=== PATIENT | male | born 1985 | race Caucasian/White ===

== ENCOUNTER 2016-10-22 11:59 | Inpatient (IN) | payer OTHER ==
[~2016-10-22] VITALS: Ht 172.7 cm; Wt 76.2 kg
--- NOTE | 2016-10-22 12:10 | NUR ---
SECURITY AT BEDSIDE FOR WANDING AND VALUABLES SECURING. PT UNABLE TO PROVIDE URINE SAMPLE AT THIS TIME. PT PROVIDED WITH WATER.
--- NOTE | 2016-10-22 12:30 | NUR ---
OBI GRANT AT BEDSIDE FOR EVAL. PT DENIES MAKING HI COMMENTS TO HIS MOTHER. PT DENIES SI OR DRUG/ETOH USE/ PER EMS, PT'S PSYCHIATRIST IS DR LOPEZ AND THAT PT HAS BEEN HOSPITALIZED AT [facility] IN THE PAST FOR PSYCH ISSUES. PT DENIES MEDS, ALLERGIES OR MEDICAL HISTORY. PT IS REQUESTING SALES ORDER COORDINATOR. OBI GRANT AND I EXPLAINED TO PT THAT HIS COOPERATION WOULD MAKE THE EVAL PROCESS GO SMOOTHER. PER EMS, PT'S MOTHER ON WAY TO HOSPITAL.
--- NOTE | 2016-10-22 12:42 | ED PSYCHIATRIC COMPLAINT ---
History of Present Illness General Chief Complaint: Psychiatric Related Complaint Stated Complaint: BIBA FOR +HI Source: patient, police Exam Limitations: pt uncooperative Allergies Coded Allergies: No Known Allergies (10/22/16) Reconcile Medications No Known Home Medications Triage Note: PT BIBA ON PEC FROM HOME FOR HI COMMENTS MADE TO MOTHER. PT REPORTS HE WAS WOKEN UP FROM BED AND BROUGHT TO ER. Triage Nurses Notes Reviewed? yes HPI: 31-year-old male here on a PEER with the Police Department, from home, the concerns are that patient stated that he would, as per the police statement," resort to capital punishment to protect his home from his mother." He, according to his mother, according to the police report, was irate last evening and began screaming and threatening that he was going to slit her throat. Apparently he is not taking his psychiatric medication. Patient denies any of this, states that he was sleeping his room this morning when the police came to his room and brought him here for evaluation. He denies having a with his mother, he denies SI or HI, he denies any suicidal thoughts or homicidal thoughts, he denies any psychiatric history or mental health problems in the past or any psychiatric or mental health admissions. He denies any alcohol or drug use. He is not entirely cooperative, and not forthcoming with answers and is refusing to provide urine or blood testing or participating in a breathalyzer screen. (DENNIS BRAGG) Vital Signs & Intake/Output Vital Signs & Intake/Output Vital Signs Date Time Temp Pulse Resp B/P Pulse O2 O2 Flow FiO2 Ox Delivery Rate 10/24 0755 96.6 74 146/85 10/23 2023 97.8 68 136/80 10/23 1636 98.0 85 18 135/84 98 Room Air 10/23 1215 98.2 86 18 141/84 98 Room Air ED Intake and Output 10/24 0000 10/23 1200 Intake Total Output Total Balance Patient 168 lb Weight Past History Travel History Traveled to [place] past 21 day No Medical History Any Pertinent Medical History? none Surgical History Surgical History: none Psychosocial History Tobacco Use: Never used ETOH Use: denies use Illicit Drug Use: denies illicit drug use Family History Hx Contributory? No (unknown) (DENNIS BRAGG) Review of Systems Review of Systems Constitutional: Reports: see HPI. EENTM: Reports: no symptoms. Respiratory: Reports: no symptoms. Cardiovascular: Reports: no symptoms. GI: Reports: no symptoms. Genitourinary: Reports: no symptoms. Musculoskeletal: Reports: no symptoms. Skin: Reports: no symptoms. Neurological/Psychological: Reports: no symptoms. Hematologic/Endocrine: Reports: no symptoms. Immunologic/Allergic: Reports: no symptoms. All Other Systems: Reviewed and Negative (DENNIS BRAGG) Physical Exam Physical Exam General Appearance: well developed/nourished, anxious Head: atraumatic Eyes: Bilateral: PERRL, EOMI. Ears, Nose, Throat: normal pharynx, normal ENT inspection, hearing grossly normal Neck: normal inspection, supple Respiratory: normal breath sounds Cardiovascular: regular rate/rhythm Gastrointestinal: soft, non-tender Extremities: normal range of motion Neurological/Psychiatric: no motor/sensory deficits, awake, agitated, alert, anxious Appearance/Memory/Insight: appropriate appearance, appropriate insight, denies illness Behavoir/Eye Contact/Speech: avoids eye contact, cooperative Thoughts/Hallucinations: normal thought pattern, no apparent hallucination Skin: intact, normal color, warm/dry (DENNIS BRAGG) SAD PERSONS Done? patient not suicidal (BEATRIZ REECE,GENEVIEVE) Progress Hand-Off Endorsed To: ARINA ALMONTE MD Endorsed Time: 2235 Pending: other (psychiatric hold for [facility]) (DENNIS BRAGG) Plan of Care: Orders Procedure Date/time Status Change service to 10/24 UNK Active Regular Diet 10/23 D Active Vital Signs 10/23 1706 Active Inpt Psych Teach/Educate 10/23 1706 Active Nutritional Intake, Monitor 10/23 1706 Active Inpt Psych Auricular Acupunctu 10/23 1706 Active Patient Data - inpatient psych 10/23 1203 Active Admit to inpatient psych 10/23 1203 Active Vital Signs 10/23 UNK Active Nursing Misc 10/23 UNK Active Alternative Nursing Therapy 10/23 UNK Active Activity/Ambulation 10/23 UNK Active EKG 10/23 UNK Active Intake & Output 10/22 1219 Complete Current Medications Sig/Bibiana Start time Last Medication Dose Stop Time Status Admin Risperidone 1 MG AT BEDTIME 10/23 2200 AC (Risperidone) Acetaminophen 650 MG Q4P PRN 10/23 2044 AC (Tylenol) Al Hydroxide/Mg 30 ML Q4-PRN PRN 10/23 2045 AC Hydroxide (Maalox Plus) Magnesium Hydroxide 30 ML Q6-PRN PRN 10/23 2045 AC (Milk Of Magnesia) Haloperidol 5 MG Q6-PRN PRN 10/23 1230 AC (Haldol) Lorazepam 1 MG Q6-PRN PRN 10/23 1230 AC (Ativan) Patient was initially refusing to participate in providing a urine sample and drug screen for a routine testing for crisis evaluation. After several discussions with myself and nursing staff and the crisis Department, he agreed to provide us with urine and blood specimens so we may proceed with further evaluation. There is no evidence of toxic ingestion and he is cleared from medical standpoint to be evaluated by our staff nurse. As per staff nurse, patient is a threat to harm his mother and he will require a PEC. The plan is to monitor him overnight and search for a more suitable psychiatric facility tomorrow. Patient signed out to Dr. Almonte at change of shift (DENNIS BRAGG) Comments: 10/22/2016 8:38:14 PM per crisis, the patient is a legitimate risk of harm to others and a bed search is in progress. 10/22/2016 10:50:00 PM patient signed out to me by OBI at shift exchange consultant. 10/23/2016 7:22:12 AM patient signed out to Dr. Fung at shift exchange consultant. (ALPESH REECE,ARINA Jolly) Differential Diagnosis: drug intoxication, drug overdose, drug withdrawal, electrolyte abnormality, hypoglycemia (BEATRIZ REECE,GENEVIEVE) Departure Departure Condition: Stable Referrals: UNKNOWN (PCP/Family) Departure Forms: Customer Survey General Discharge Information Prescriptions: Current Visit Scripts No Known Home Medications (DENNIS BRAGG) Departure Time of Disposition: 1209 Disposition: STILL A PATIENT Clinical Impression Primary Impression: Antisocial personality disorder in adult Secondary Impressions: Delusional disorder Psych Admission Note Psychiatric Admission: I have seen and evaluated FRANCES WORTHINGTON. I have also reviewed all the pertinent lab results and diagnostic results. FRANCES WORTHINGTON will be admitted to our inpatient Psychiatric unit for treatment and care. PA/POULTRY CULLER Co-Sign Statement Statement: ED Attending supervision documentation- x I saw and evaluated the patient. I have also reviewed all the pertinent lab results and diagnostic results. I agree with the findings and the plan of care as documented in the PA's/POULTRY CULLER's documentation. [] I have reviewed the ED Record and agree with the PA's/POULTRY CULLER's documentation. [] Additions or exceptions (if any) to the PAs/POULTRY CULLER's note and plan are summarized below: [] (BEATRIZ REECE,GENEVIEVE)
--- NOTE | 2016-10-22 12:46 | NUR ---
PT DENIES HAVING ANY OUTPATIENT TREATERS. PER EMS, PT'S MOM CALLED PT'S PSYCHIATRIST, DR LOPEZ TODAY WHO RECOMMENDED PT BE TRANSPORTED TO [facility].
--- NOTE | 2016-10-22 15:23 | ED PSY CRISIS COLLATERAL NOTE ---
Collateral Note Collateral Note Family/Inform/Faye Contacts: Crisis spoke with Pt's mother Kasey Mccoy . Pt lives with his Mom and mom is elderly and is dealing with her own medical issues. Pt is often verbal abusive and threatening and Mom will have to stay out in her car due to fear of her safety. She reports that pt has an extensive psychiatric hx starting during his childhood at [facility] child [facility] where he was dx with Anxiety, OCD and unspecified personality disorder. Mom reports that most recently he has been in out pt tx with Psychiatrist Dr Zain Jackson in [place], but has stopped going and has stopped his meds. She reports that Pt gets very irrational, paranoid and delusional. She explains that she called the police because pt threatened to use capital punishment and kill her by cutting her throat. He did this because he thinks that She and the neighbors are plotting against him to ruin the property value of the home. Mo says he blames her for everything. Pt thinks he owns the home, but it is his mothers. Mom reports that pt has been isolating in his room, sleeping all day and up all night. He has also been drinking alcohol excessively. Mom would like pt hospitalized and does not feel safe having him home. She would like to be updated on pt's dispo.
--- NOTE | 2016-10-22 15:24 | NUR ---
PT CONTINUES TO REFUSE BLOOD WORK AND TO GIVE A URINE SAMPLE. PT MOVED FROM HALLWAY TO ROOM 14. PT CALM, BUT UNCOOPERATIVE.
--- NOTE | 2016-10-22 15:47 | NUR ---
This Clinician also attempted to encourage pt to allow labs so that Crisis can move forward with EVAL. Pt continues to not cooperate
--- NOTE | 2016-10-22 15:55 | NUR ---
Psychiatrist Dr. Crawford made aware of pt's refusal to allow labs. Crisis will awaite labs as pt is on a PEER and can be held
--- NOTE | 2016-10-22 16:01 | NUR ---
PT REFUSED LABS AND VITALS AT THIS TIME.
--- NOTE | 2016-10-22 16:19 | NUR ---
THIS RN SPOKE WITH PT ABOUT CARE PROCESS. WHEN ASKED IF THERE WAS A PARTICULAR REASON WHY PT WAS REFUSING BLOOD WORK HE REPORTED, "YEAH BECAUSE I'M HELD HERE AGAINST MY WILL." PT INFORMED THAT CRISIS WILL NOT BE ABLE TO CONSULT WITH PT UNTIL BLOOD WORK AND URINE IS AVAILABLE. PT REPLIED, "THAT'S OKAY. I KNOW THEY CAN LEGALLY HOLD ME HERE FOR A CERTAIN AMOUNT OF TIME SO I PLAN ON JUST RIDING THAT OUT."
--- NOTE | 2016-10-22 17:07 | ED PSY CRISIS COLLATERAL NOTE ---
Collateral Note Collateral Note Family/Inform/Faye Contacts: Message left for Psychiatrist Dr. Zain Jcakson
--- NOTE | 2016-10-22 17:47 | NUR ---
PT BECOMING SLIGHTLY ANXIOUS TO KNOW WHAT THE PLAN OF CARE IS. PT INFORMED AGAIN THAT CRISIS IS UNABLE TO EVALUATE PT UNTIL BLOOD WORK AND URINE ARE PROVIDED TO WHICH PT RESPONDED, "WELL I'M NOT GOING TO CONSENT TO THAT SO IF SOMEONE OFFICIAL COULD TELL ME THAT I HAVE TO WAIT UNTIL MY 72 HOURS (REFERING TO PEER) IS UP THEN I WOULD LIKE TO SPEAK WITH THEM." PROVIDER AWARE.
--- NOTE | 2016-10-22 18:48 | NUR ---
LABS DRAWN AND SENT
--- NOTE | 2016-10-22 18:48 | NUR ---
URINE TRIO SENT
[2016-10-22 19:08] LABS: ABSOLUTE BASOPHIL COUNT 0 /CUMM (0.0-0.2); ABSOLUTE EOSINOPHIL COUNT 0 /CUMM (0.0-0.7); ABSOLUTE GRANULOCYTE CT 5.1 /CUMM (1.4-6.5); ABSOLUTE LYMPH COUNT 1.1 /CUMM (1.2-3.4); ABSOLUTE MONOCYTE COUNT 0.5 /CUMM (0.10-0.60); BASOPHIL % 0.2 % (0.0-2.0); EOSINOPHIL % 0.4 % (0-5); GRANULOCYTE % 75.7 % (42.2-75.2); HEMATOCRIT 44.2 % (42-52); MEAN CORPUSCULAR HGB CONC 33.6 G/DL (33.0-37.0); MEAN CORPUSCULAR VOLUME 86.3 FL (80.0-94.0); PLATELET COUNT 255 /CUMM (130-400); RBC DISTRIBUTION WIDTH 13.1 % (11.5-14.5); RED BLOOD CELL CT 5.13 /CUMM (4.70-6.10); WHITE BLOOD CELL COUNT 6.7 /CUMM (4.8-10.8)
--- NOTE | 2016-10-22 20:34 | NUR ---
PER CRISIS, PT JUST STARTED TO COOPERATE WITH STAFF AND WILL BE HELD OVER IN ED FOR OBSERVATION.
--- NOTE | 2016-10-22 21:03 | NUR ---
PT MEDICATED WITH 2MG VALIUM PO. PT REFUSED ORDERED DESYREL.
--- NOTE | 2016-10-22 21:26 | ED PSYCH CRISIS CONSULTATION ---
Crisis Consult Basic Assessment Date of Consult: 10/22/16 Responsible Person/Accompanied By: LOLIS Insurance Authorization: Insurance #1: Insurance name: SELF-PAY Phone number: Policy number: Group number: Authorization number: ED Provider: Patient's ED Provider: DENNIS BRAGG Primary Care Physician: Patient's PCP: UNKNOWN PCP's Phone Number: Chief Complaint: Psychiatric Related Complaint Patient's Quote: "I came in by ambulance" Present Illness: Pt is a 31 year old male. Pt was not cooperative with bloodwork or urinalysis until hours after being in ER. I spoke with pt and discussed our process he then agreed to complete the labs. Pt is on a peer, and per his Mother has made significant threats to harm her. Upon evaluating pt he is calm, somber, giving good eye contact and providing concise answers. He is reserved when asked about the incident between him and his Mother leading her to call 911, in fact he states it was a "misunderstanding, and I would apologize to her if I could". Pt is not forthcoming, he reports feeling calm. Pt is exhibiting manipulative behaviors and has little insight to his mental health. he is at risk of hurting himself or someone else i.e. his Mother, he has very little to lose, as he rants and yells a this Mother routinely about how "her genes are the reason he is like this", Mother also reports he has been screaming and yelling and appears delusional when he talks to her at all, it come across as verbal abuse. 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 pt is on Valium, although he states he is tapering himself off, and only on 10mg every 3 days. He has a flat affect denies si/ah/vh. Patient's Address: [address] [place] [address] Other Phone Number: Who Do You Live With? Mother Family/Informants Interviewed: Spoke with his Mother she states, "i want to be safe, I want him to be safe, and I don't want to end up a headline". she " does not feel safe having him return home, in fact his father when he was alive, refused to be left alone with him due to his sons cruelty towards him" Allergies - Coded Allergies: No Known Allergies (10/22/16) Current Medications - No Known Home Medications Laboratory Results: Laboratory Tests 10/22/161844: Serum Alcohol 15.0 10/22/161844: Anion Gap 15, Estimated GFR > 60, BUN/Creatinine Ratio 15.6, Glucose 105 H, Calcium 9.6, Total Bilirubin 0.6, AST 46, ALT 40, Alkaline Phosphatase 57, Total Protein 8.9 H, Albumin 5.2 H, Globulin 3.7, Albumin/Globulin Ratio 1.4, CBC w Diff NO MAN DIFF REQ, RBC 5.13, MCV 86.3, MCH 29.0, RDW 13.1, MPV 8.0, Gran % 75.7 H, Lymphocytes % 16.8 L, Monocytes % 6.9, Eosinophils % 0.4, Basophils % 0.2, Absolute Granulocytes 5.1, Absolute Lymphocytes 1.1 L, Absolute Monocytes 0.5, Absolute Eosinophils 0, Absolute Basophils 0, PUBS MCHC 33.6, Urine Opiates Screen < 100.00, Methadone Screen < 40, Barbiturate Screen < 60, Ur Phencyclidine Scrn < 6.00, Amphetamines Screen < 100, U Benzodiazepines Scrn > 800 H, Urine Cocaine Screen < 50, Urine Cannabis Screen < 5.00 (MAURICE MOREL,MARQUISE) Past History Past Medical History Neurological: NONE EENT: NONE Cardiovascular: NONE Respiratory: NONE Gastrointestinal: NONE Hepatic: NONE Renal: NONE Musculoskeletal: NONE Psychiatric: NONE Endocrine: NONE Past Surgical History Surgical History: 1 Psychosocial History Strengths/Capabilities: Did complete a college business degree, Mother is supportive, although relationship emeshed and strained. Psychiatric Treatment History Psych Treatment Psychiatric Treatment Yes Inpatient Treatment No Outpatient Treatment Yes Location of Treatment [place] Reason for Treatment unknown Dates of Treatment April 2016 Response to Treatment unknown Diagnosis by History: unknown Substance Use/Abuse History Drug Use/Abuse Substances Used/Abused No Substance Used/Abused Benzodiazepines First Use 6 months ago Last Used unknown How much used/taken 10mg every 3 days How often unknown For how long 6 months Route of use oral Substance Abuse Treatment Substance Abuse Treatment Past Substance Abuse [place] No Comments: Benzos were prescribed valium 10mg (MARQUISE RICHARDS LCSW) Current Mental Status Mental Status Orientation: Person, Place, Situation Affect: Blunted, Flat Speech: Evasive Neuro-vegetative: Concentration Poor, Sleep Disturbance Appearance Appearance- Dress/Hygiene: well groomed, wearing glasses, Behaviors Thought Process: Irrational Thought Content: Entitled, Paranoid Memory: WNL Insight: Poor SI/HI Risk Assessment Past Suicidal Ideation/Attempts No Current Suicidal Ideation/Att No Past Homicidal Ideation/Att: No Current Homicidal Ideation/Attempts Yes Degree of Intent: States Intent Danger To: Others Gravely Disabled: Lack of Insight, Poor Judgment Risk Factors: high anxiety/distress, history of Violence, isolate/no social support, male Lethality Ratin PTSD Checklist PTSD Done? patient declined ED Management Sitter: Yes Restraints: No (MARQUISE RICHARDS LCSW) DSM5/PS Stressors/Medical Prob Diagnosis' (DSM 5, Stressors, Medical): Delusional D/O F22 Anti-social traits Current GAF: 25 (MARQUISE RICAHRDS LCSW) Diagnosis' (DSM 5, Stressors, Medical): Unspecified Schizophrenia spectrum and other psychotic D/O F29, R/O Delusional Disorder, Antisocial traits Current GAF: 27 Comments: Conflicted relationship with Mom (BRITOTNEUGENE MOREL,CHAYO) Departure Disposition Psych Medical Clearance Date: 10/22/16 Medically Cleared at: 2009 Time Started: 2009 Time Ended: 2109 Psychiatrist Consulted: Maurilio Date Disposition Established: 10/22/16 Time Disposition Established: 2099 Plan for Disposition - Modality: hold/over Rationale for Disposition: consulted with Dr. Thorpe At this time it would be best to get more information from his previous psychiatrist and provide the appropriate level of care. Pt is at risk of hurting someone else, and is exhibiting no insight. Type of IP Admission: PEC Additional Instructions: try to call his Dr again for further collateral [phone], Dr. Zain Jackson Referrals UNKNOWN (PCP/Family) (MARQUISE RICHARDS LCSW) Disposition Psych Medical Clearance Date: 10/23/16 Medically Cleared at: 1000 Time Started: 1000 Time Ended: 1140 Psychiatrist Consulted: Dr. Dawn Date Disposition Established: 10/23/16 Time Disposition Established: 1200 Plan for Disposition - Modality: Inpatient Psychiatry Facility: [facility] Follow-up Appt Date: 10/23/16 Rationale for Disposition: safety and stabilization Type of IP Admission: PEC (MIK MOREL,CHAYO) Addendum Addendum Pt was re-evaluated by Crisis and he remains calm, guarded, and superficially engaging with minimal insight. Pt's continues to deny SI/HI/SH and denies that he ever made threats to hurt or kill his mother. Pt requests discharge home. He denies any prior psych hx other than seeing Dr. Jackson in [place] for anxiety, but stopped going 8 months ago. Pt verbal expressions are inconsistent with staff as he told this clinician he stopped going to out pt tx 8 months ago and told Katia on of the other clinicians he stopped 6 months ago. This clinician did speak with who reported that it was about 6 or 7 months ago that pt stopped seeing him due to loosing his health insurance. Dr. Jackson who expressed that Mom's reports of pt's threats should be believed as he has met with them both together and pt becomes paranoid, delusional and threatening toward his Mom. He reports that Pt blames his mom for everything and says that it is her fault because she gave him bad genes. He blames her for things that she has nothing to do with or things that are not real. She may says something totally benign and he with lash out at her. He informs that he recommended antipsychotic meds to pt many times, and pt refused. This clinician spoke to pt' s Mother again who expresses great concern for her safety and cries and pleads for him not to be discharged. She further states that she will have to quit her job and go into hiding because he will track her down and kill her and it will be all over the news. She reports that pt drinks excessively and he has been arrested for DUI, and also spent time in care home for driving drunk. (pt denies drinking excessively and says he only drinks socially) Although pt denies any inpt psych tx, pt's Mother reports that he was admitted to [facility] 4 years ago for tx of psychosis and throwing furniture around her home. When this clinician addressed his inconsistency about denying he was inpt, he replied that it was a misunderstanding. Pt then offered that he has never been on any antipsychotics, and when This clinician told him that it has been recommended by his last psychiatrist, he replied that he is the same psychiatrist who prescribed him adderall. "Would you give someone with Psychosis adderall." Case reviewed with Dr. Stallworth o9f Psychiatry, who recommends admit to CPS. Pt is currently on a PEC written yesterday. Pt was given the option to sign in voluntarily and the difference was explained. Pt requested to read both the voluntary and involuntarily. He decided to remain on a PEC as he does not agree with being admitted. He states that if he stay on the PEC then the hospital will have to cover his attorney general fees as he can not afford an attorney general when he fights the PEC. Pt had expressed earlier in the conversation, that he had money for attorneys and would be calling them to fight the admission. Pt continued to attempt to argue why he should not be admitted and refused to participate in the questions fo0r the social or diagnostic hx. Pt remained calm wile politely refusing to participate stating he does not agree. When it was explained to him that if he participates in the process it would make a better impression and he would likely be discharged sooner from the unit than if he did not participate, he responded. "I agreed to participate here in the ED so I could be discharged and look what is happing now. I am being admitted. I can't trust any of the staff here." (MIK MOREL,CHAYO)
--- NOTE | 2016-10-22 23:35 | NUR ---
PT RESTING ON BED. REGULAR RR NOTED.
--- NOTE | 2016-10-23 02:46 | NUR ---
PT RESTING ON BED.
--- NOTE | 2016-10-23 04:59 | NUR ---
PT RESTING ON BED. REGULAR RR NOTED.
--- NOTE | 2016-10-23 09:13 | NUR ---
PT AWAKE AT THIS TIME. VITALS RECHECKED PT PLEASANT, CALM AND COOPERATIVE WITH NO COMPLAINTS OR NEEDS VOICED. STATES HE ATE BREAKFAST THIS AM AND IS AWARE HE IS AWAITING CRISIS DISPO TODAY SITTER REMAINS PRESENT
--- NOTE | 2016-10-23 10:34 | NUR ---
Crisis awaiting collateral from Pt's out pt psychiatrist prior to determing final dispo.
--- NOTE | 2016-10-23 12:01 | NUR ---
PT SITTING UP AT THIS TIME SPEAKING WITH CARGO STATION WORKER REMAINS CALM AND COOPERATIVE
--- NOTE | 2016-10-23 12:58 | NUR ---
CRISIS AT BEDSIDE TO SPEAK WITH PT , PT MADE AWARE THAT HE IS BEING ADMITTED , PT UNWILLING TO SIGHN PAPERS FOR CRISIS AT THIS TIME AND REQUEST TO READ PAPER WORK FIRST .
--- NOTE | 2016-10-23 13:32 | NUR ---
PER CRISIS , REPORT CAN BE CALLED AFTER 1600
--- NOTE | 2016-10-23 14:02 | NUR ---
PT REMAINS CALM AND COOPERATIVE CONVERSING WITH SITTER AT THIS TIME REQUESTING TO SHOWER. SITTER GATHERING SUPPLIES AT THIS TIME
--- NOTE | 2016-10-23 14:45 | NUR ---
PT HAS SHOWERED. WATCHING TV IN ROOM WITH NO ADDITIONAL COMPLAINTS. SITTER REMAINS PRESENT IN AREA. AWAITING ADMISSION/TRANSFER TO [facility]
--- NOTE | 2016-10-23 16:07 | IP CRISIS DIAG ASSESS PSYCH ---
Diagnostic Assessment Basic Assessment Insurance Authorization: Insurance #1: Insurance name: SELF-PAY Phone number: Policy number: [id number] Group number: Authorization number: [id number] Primary Care Physician: Patient's PCP: UNKNOWN PCP's Phone Number: Patient's Quote: "I came in by ambulance" Present Illness: Pt is a 31 year old male. Pt was not cooperative with bloodwork or urinalysis until hours after being in ER. I spoke with pt and discussed our process he then agreed to complete the labs. Pt is on a peer, and per his Mother has made significant threats to harm her. Upon evaluating pt he is calm, somber, giving good eye contact and providing concise answers. He is reserved when asked about the incident between him and his Mother leading her to call 911, in fact he states it was a "misunderstanding, and I would apologize to her if I could". Pt is not forthcoming, he reports feeling calm. Pt is exhibiting manipulative behaviors and has little insight to his mental health. he is at risk of hurting himself or someone else i.e. his Mother, he has very little to lose, as he rants and yells a this Mother routinely about how "her genes are the reason he is like this", Mother also reports he has been screaming and yelling and appears delusional when he talks to her at all, it come across as verbal abuse. 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 pt is on Valium, although he states he is tapering himself off, and only on 10mg every 3 days. He has a flat affect denies si/ah/vh. consulted with Dr. Thorpe At this time it would be best to get more information from his previous psychiatrist and provide the appropriate level of care. Pt is at risk of hurting someone else, and is exhibiting no insight. MARQUISE RICHARDS COTTON ACREAGE MEASURER> 10/22/16 Crisis spoke with Pt's mother Kasey Mccoy . Pt lives with his Mom and mom is elderly and is dealing with her own medical issues. Pt is often verbal abusive and threatening and Mom will have to stay out in her car due to fear of her safety. She reports that pt has an extensive psychiatric hx starting during his childhood at [facility] where he was dx with Anxiety, OCD and unspecified personality disorder. Mom reports that most recently he has been in out pt tx with Psychiatrist Dr Zain Jackson in [place], but has stopped going and has stopped his meds. She reports that Pt gets very irrational, paranoid and delusional. She explains that she called the police because pt threatened to use capital punishment and kill her by cutting her throat. He did this because he thinks that She and the neighbors are plotting against him to ruin the property value of the home. Mo says he blames her for everything. Pt thinks he owns the home, but it is his mothers. Mom reports that pt has been isolating in his room, sleeping all day and up all night. He has also been drinking alcohol excessively. Mom would like pt hospitalized and does not feel safe having him home. She would like to be updated on pt's dispo. INITIATED BY: CHAYO HOUSER LCSW 10/22/15 Pt was re-evaluated by Crisis and he remains calm, guarded, and superficially engaging with minimal insight. Pt's continues to deny SI/HI/SH and denies that he ever made threats to hurt or kill his mother. Pt requests discharge home. He denies any prior psych hx other than seeing Dr. Jackson in [place] for anxiety, but stopped going 8 months ago. Pt verbal expressions are inconsistent with staff as he told this clinician he stopped going to out pt tx 8 months ago and told Katia on of the other clinicians he stopped 6 months ago. This clinician did speak with who reported that it was about 6 or 7 months ago that pt stopped seeing him due to loosing his health insurance. Dr. Jackson who expressed that Mom's reports of pt's threats should be believed as he has met with them both together and pt becomes paranoid, delusional and threatening toward his Mom. He reports that Pt blames his mom for everything and says that it is her fault because she gave him bad genes. He blames her for things that she has nothing to do with or things that are not real. She may says something totally benign and he with lash out at her. He informs that he recommended antipsychotic meds to pt many times, and pt refused. This clinician spoke to pt' s Mother again who expresses great concern for her safety and cries and pleads for him not to be discharged. She further states that she will have to quit her job and go into hiding because he will track her down and kill her and it will be all over the news. She reports that pt drinks excessively and he has been arrested for DUI, and also spent time in intermediate for driving drunk. (pt denies drinking excessively and says he only drinks socially) Although pt denies any inpt psych tx, pt's Mother reports that he was admitted to [facility] 4 years ago for tx of psychosis and throwing furniture around her home. When this clinician addressed his inconsistency about denying he was inpt, he replied that it was a misunderstanding. Pt then offered that he has never been on any antipsychotics, and when This clinician told him that it has been recommended by his last psychiatrist, he replied that he is the same psychiatrist who prescribed him adderall. "Would you give someone with Psychosis adderall." Case reviewed with Dr. Stallworth o Psychiatry, who recommends admit to [facility]. Pt is currently on a PEC written yesterday. Pt was given the option to sign in voluntarily and the difference was explained. Pt requested to read both the voluntary and involuntarily. He decided to remain on a PEC as he does not agree with being admitted. He states that if he stay on the PEC then the hospital will have to cover his senior infrastructure architect fees as he can not afford an senior infrastructure architect when he fights the PEC. Pt had expressed earlier in the conversation, that he had money for attorneys and would be calling them to fight the admission. Pt continued to attempt to argue why he should not be admitted and refused to participate in the questions fo0r the social or diagnostic hx. Pt remained calm wile politely refusing to participate stating he does not agree. When it was explained to him that if he participates in the process it would make a better impression and he would likely be discharged sooner from the unit than if he did not participate, he responded. "I agreed to participate here in the ED so I could be discharged and look what is happing now. I am being admitted. I can't trust any of the staff here." CHAYO HOUSER COTTON ACREAGE MEASURER> 10/23/16 Patient's Address: [address] [place] [address] Other Phone Number: Who Do You Live With? Mother Feel Safe Where You Live? No ("Not when the police can come ) Feel Safe in Your Relationship Yes Marital Status: single Do You Have Children? No Primary Language? Khmer Language(s) Spoken At Home: Khmer Family/Informants Interviewed: Spoke with his Mother she states, "i want to be safe, I want him to be safe, and I don't want to end up a headline". she " does not feel safe having him return home, in fact his father when he was alive, refused to be left alone with him due to his sons cruelty towards him" Allergies - Coded Allergies: No Known Allergies (10/22/16) Current Medications - No Known Home Medications Lab Results: Laboratory Tests 10/22/161844: Serum Alcohol 15.0 10/22/161844: Anion Gap 15, Estimated GFR > 60, BUN/Creatinine Ratio 15.6, Glucose 105 H, Calcium 9.6, Total Bilirubin 0.6, AST 46, ALT 40, Alkaline Phosphatase 57, Total Protein 8.9 H, Albumin 5.2 H, Globulin 3.7, Albumin/Globulin Ratio 1.4, CBC w Diff NO MAN DIFF REQ, RBC 5.13, MCV 86.3, MCH 29.0, RDW 13.1, MPV 8.0, Gran % 75.7 H, Lymphocytes % 16.8 L, Monocytes % 6.9, Eosinophils % 0.4, Basophils % 0.2, Absolute Granulocytes 5.1, Absolute Lymphocytes 1.1 L, Absolute Monocytes 0.5, Absolute Eosinophils 0, Absolute Basophils 0, PUBS MCHC 33.6, Urine Opiates Screen < 100.00, Methadone Screen < 40, Barbiturate Screen < 60, Ur Phencyclidine Scrn < 6.00, Amphetamines Screen < 100, U Benzodiazepines Scrn > 800 H, Urine Cocaine Screen < 50, Urine Cannabis Screen < 5.00 Toxicology Screen Completed? Yes Results: positive Symptoms of Use: Pt was prescribed benzos Past History Abuse/Trauma History Trauma History/Current Trauma: pt refuses to answer Legal History Current Legal Status: denies Have you ever been arrested? Yes Number of Arrests: [address] Dates: denies Psychosocial History Strengths/Capabilities: Did complete a college business degree, Mother is supportive, although relationship emeshed and strained. Physical Limitations (Interventions): none reported Psychiatric Treatment History Psych Treatment Psychiatric Treatment Yes Inpatient Treatment No Outpatient Treatment Yes Location of Treatment [place] Reason for Treatment unknown Dates of Treatment April 2016 Response to Treatment unknown Diagnosis by History: unknown Risk Factors: high anxiety/distress, history of Violence, isolate/no social support, male Substance Use/Abuse History Drug Use/Abuse minimum 12mo Hx Substances Used/Abused No Substance Used/Abused Benzodiazepines First Use 6 months ago Last Used unknown How much used/taken 10mg every 3 days How often unknown For how long 6 months Route of use oral Substance Abuse Treatment Substance Abuse Treatment Past Substance Abuse [place] No Education History Highest Level of Education: bachelor's degree Current Mental Status Mental Status Orientation: Person, Place, Situation Affect: Blunted, Flat Speech: Evasive Neuro-vegetative: Concentration Poor, Sleep Disturbance Appearance Appearance- Dress/Hygiene: well groomed, wearing glasses, Behaviors Thought Process: Irrational Thought Content: Delusions, Entitled, Paranoid Memory: WNL Insight: Poor SI/HI Risk Assessment - Minimum 6mo History- Past Suicidal Ideation/Attempts No Current Suicidal Ideation/Att No Past Homicidal Ideation/Att: No Current Homicidal Ideation/Attempts Yes Degree of Intent: States Intent Danger To: Others Gravely Disabled: Lack of Insight, Poor Judgment Risk Factors: high anxiety/distress, history of Violence, isolate/no social support, male Lethality Ratin Needs/Init TX Plan/Goals: safety and stabilization of sx, individual, group, and family therapy, med eval AUDIT-C Questionnaire: AUDIT-C Questionnaire: Response Value ETOH use in the past year Monthly or less 1 # drinks typical/day 1 or 2 0 6 or > drinks per occasion Less than monthly 1 Total 2 DSM5/PS Stressors/Medical Prob Diagnosis' (DSM 5, Stressors, Medical): Unspecified Schizophrenia spectrum and other psychotic D/O F29, R/O Delusional Disorder, Antisocial traits Current GAF: 27 Comments: Conflicted relationship with Mom
--- NOTE | 2016-10-23 16:40 | NUR ---
PT REMAINS CALM AND COOPERATIVE, VITAL STABLE, AFEBRILE. REPORT CALLED TO [facility] NURSE [place]. DISTRIBUTION CALLED FOR TRANSPORT.
--- NOTE | 2016-10-23 16:42 | NUR ---
SECURITY CALLED FOR TRANSPORT WITH DISTRIBUTION TO [facility].
--- NOTE | 2016-10-23 18:46 | NUR ---
PT IS A D31 YR OLD , SINGLE MALE BROUGHT TO THE UNIT ON A PEC FOR ANTI SOCIAL BEHAVIOR AND HOMICIAL IDEATION TOWARDS HIS MOTHER. ON INTERVIEW, THE PATIENT DENIED ALL PSYCHIATRIC SYMPTOMS OR HISTORY BESIDES ANXIETY. HE ACKNOWLEDGES SEEKING TREATMENT FOR ANXIETY IN THE PAST, WHEN HE WAS PRESCRIBED VALIUM. THE PATIENT CLAIMS HE HAS BEEN WEANING HIMSELF OFF OF VALIUM PRESCRIBED TO HIM SEVERAL MONTHS AGO. HE DENIES SUICIDAL IDEATION, HOMICIDAL IDEATION, AUDITORY AND VISUAL HALLUCINATION. HE DENIES PARANOIA. HE DENIES MAKING THREATS TOWARDS HIS MOTHER OF ANY KIND. THE PATIENT IS CONSTRICTED IN AFFECT, SOFT SPOKEN, AND THOUGHTFUL IN ANSWERING QUESTIONS. HE DENIES ANY SLEEP PROBLEMS. HE DESCRIBES HIMSELF A SOCIAL DRINKER. HE IS UNEMPLOYED AND STATES HE IS PURSUING AN NELSON. THE PATIENT HAS NO GIRLFRIEND. HE CLAIMS HE WILL BE MOVING OUT OF HIS MOTHER'S HOME IN THE NEAR FUTURE.
[2016-10-23 20:24] VITALS: BP 136/80
--- NOTE | 2016-10-24 01:55 | IP INCIDENTAL NOTE PSYCH ---
Incidental Note Notation: I spoke with Dr. Jackson who believes the patient may have an underlying psychotic disorder and OCD spectrum symptoms; patient has been resistant to starting antipsychotic medications, has found diazepam helpful, last seen by Dr. Jackson about 6-7 months ago
[2016-10-24 07:55] VITALS: BP 146/85
--- NOTE | 2016-10-24 11:49 | SOCIAL WORKER PROG NOTE PSYCH ---
Social Work Progress Note Progress Note Pt would like information about insurance and how to get out of the hospital. I gave him the phone number for [facility], I encouraged him to speak with the other providers here to walk him thru the process of getting out of the hospital. At this time pt was calm and cooperative and completed the psychosocial evaluation.
--- NOTE | 2016-10-24 12:06 | SOCIAL WORKER SOCIAL HX PSYCH ---
Social History Basic Assessment Insurance Authorization: Insurance #1: Insurance name: FIBER MACHINE TENDER-DIANA Phone number: Policy number: Group number: Authorization number: Curr Source of Income/Entitlements: No income Primary Care Physician: Patient's PCP: UNKNOWN PCP's Phone Number: Present Problem: Pt was biba after making homicidal threats towards his Mother. Pt has been off medications for several months now, and has been becoming delusional and unpredicatbale and angry at home. Primary Language? Dominican Language(s) Spoken At Home: Dominican Living Situation Other Living Arrangement: relative's/guardian's brandon Feel Safe Where You Are Living Yes Feel Safe in Relationships? Yes Comments: pt is vague, because he feels the home is his although he lives in his Mother's home. Pt does not state he feels unsafe. 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 No Mother's Age (Current/): 71 Relationship w/Mother: he states they usually get along, he does not mention homicidal thoughts and nager that she has expressed Relationship w/Father: , per Mom he was afraid to be alone with his son, pt admits he is saddened by his loss he 3 years ago Any Sibling(s)? Yes Sibling's Gender(s)/Age(s): male Sibling 1:, male Sibling 2:, female Sibling 3: Relationship w/Sibling(s): great Relationship w/Friends: good Other Comments: denies Abuse/Trauma History Trauma History/Current Trauma: Denies Legal History Current Legal Status: none Pending Court Dates: denies Have you ever been arrested Yes Number of Arrests: 1 Hx of Juvenile Legal Charges? No Hx of Adult Legal Charges? Yes If Yes: misdemeanor List/Date Most Recent Lgl Chgs: DUI when he was 21 years old Chgs/Dts/Incarcerations/Sentnc None Civil Proceedings: None Domestic Relations Court: None Child Protective Serv Involvmnt None Computer Customer Support Specialist None Psychosocial History Primary Support System: mother Strengths/Capabilities: Did complete a college business degree, Mother is supportive, although relationship emeshed and strained. Weaknesses: pt is not showing insight to mental health condition Physical Limitations (Interventions): none reported Last Physical: unknown History of Seizures? No History of Blackouts? No ADL Limitations: denies [place]/Social/Peer Relations pt states he has "social life" Meaningful Activities: read, sports fan of [employer], sailing Childhood Confucianist: Confucianist Current Islam Affiliation: Confucianist Is Spirituality Important to You? yes Cultural/Ethnic Issues: denies Are There Developmental Issues? No Milestones Achieved: fine motor, gross motor Psychiatric Treatment History Psych Treatment Inpatient Treatment No Outpatient Treatment Yes Location of Treatment [place] Reason for Treatment unknown Dates of Treatment April 2016 Response to Treatment unknown Current Ordnance Handler: none currently Diagnosis: unknown Psychodynamic Issues: is becoming delusional blaming Mother for giving him "these genes" and making threats to cut her throat. They live together and Mom is fearful for her safety Risk Factors: high anxiety/distress, history of Violence, isolate/no social support, male Substance Use/Abuse History Drug Use/Abuse 1 Substance Used/Abused Benzodiazepines First Use 6 months ago Last Used unknown How much used/taken 10mg every 3 days How often unknown For how long 6 months Route of use oral Drug Use/Abuse 2 Substance Used/Abused Alcohol First Use teenage years/early 20s Last Used 10/22 How much used/taken varies How often varies For how long on and off years Route of use oral Have Had Periods of Sobriety? Yes Relapse History? No Have You Ever Attended AA? No Symptoms of Use: Pt was prescribed benzos, and sattes he is a social drinker will not ellaborate Substance Abuse Treatment Substance Abuse Treatment Inpatient Treatment No Comments: denies drug and etoh tx episodes Sexual History Sexually Active Yes # of partners 1 Sexual Orientation Heterosexual Use of Protection Yes Always Sexual Concerns: denies Education History Highest Level of Education: bachelor's degree Number of College Years: 4 College Degree/Major: business Preferred Learning Style: visual HX of Learning Difficulties: None reported Barriers to Learning: None reported Special Communication Needs: None reported Employment History Employment Unemployed 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 of Jobs in Last 5 Years: 1 Attendance: Normal Performance: Average Comments: worked at [employer] in a temporary position, but has not had many jobs left here to return to school History Have You Been in The ? No Current Mental Status Mental Status Orientation: Person, Place, Situation Affect: Blunted, Flat Speech: Evasive Neuro-vegetative: Concentration Poor, Sleep Disturbance Appearance Appearance- Dress/Hygiene: well groomed, wearing glasses, Behaviors Thought Process: Irrational Thought Content: Delusions, Entitled, Paranoid Memory: WNL Insight: Poor SI/HI Risk Assessment Past Suicidal Ideation/Attempts No Current Suicidal Ideation/Att No Past Homicidal Ideation/Att: No Current Homicidal Ideation/Attempts Yes Degree of Intent: States Intent Danger To: Others Gravely Disabled: Lack of Insight, Poor Judgment Lethality Ratin - Conclusion and Recommendations for treatment - and discharge planning
[2016-10-24 13:17] VITALS: BP 152/80
--- NOTE | 2016-10-24 13:30 | CPS MD/APRN INITIAL ASSE PSYCH ---
Psychiatric Admission Cpc's Note Reviewed: Yes Patient Seen and Examined: Yes Identifying Information: Patient is a 31-year old male. Chief Complaint: "I'm not sure why I'm here." Reaction to Hospitalization: "Confusing...I've never harmed myself or anyone else." History of Present Illness Onset of Illness: Patient is a 31-year old male with a self-reported history of anxiety and alcohol use disorder, who was BIBA on a PEER to ED secondary to concern that he would harm his mother. PEER: "stated he (pt) would resort to capital punishment to protect his home from his mother, who owns said home/ Mother states Richard has a long history of psychological issues and that on the evening of 10/21/16 he became irrate and began screaming that he was going to slit her (pt's mother) throat." Mother further states that Richard has not been taking his prescribed medications." On encounter today, patient was A&Ox3. Appeared very calm and guarded. His reports were vague regarding the events which led to current hospitalization. He reported the police arrived to his home on the morning of 10/22/16 and gave him an ultimatum of long term or going to ED for psych evaluation secondary to concern of HI towards his mother. Patient calmly related that this report was a "misunderstading." He reported he has never harmed himself or other person. Speech was soft-spoken and well-articulated. He answered questions, however vaguely. He denied acute symptoms of depression and anxiety, passive and active suicidal ideation, plans and intent. He denied homicidal ideation towards his mother and others. He denied auditory and visual hallucinations. He denied feeling hopeless, helpless, worthless and guilty. He denied having magical lazo. There was no overt evidence of delusions or paranoia on encounter. He denied insomnia, or changes in appetite. He reported previous inaptient psychiatric hospitalization at [facility] "3 years ago" and reported his diagnoses were "inconclusive." He reported "I do not have a psychiatric problem, my mother overexaggerates." When informed of the concerns that were stated on the PEER and in Crisis ED eval , the patient again reported these concerns to be a "misunderstanding." He would not elaborate on this statement, or provide a rationale for why these statements were made. He denied making homicidal threats towards his mother, or others. He further refused permission for this financial underwriter to contact his mother and Dr. Jackson, or to obtain records from [facility] and former outpatient psychiatrist . Per Dr. Hardy's collateral obtained from Dr. Jackson: Dr. Jackson "believes the patient may have an underlying psychotic disorder and OCD spectrum symptoms; patient has been resistant to starting antipsychotic medications, has found diazepam helpful, last seen by Dr. Jackson about 6-7 months ago." Circumstances Leading to Admission: +Paranoia/delusions to "resort to Capital punishment to protect his home from his mother, who owns home (per PEER)."; Homicidal threats toward mother per PEER. Problem(s) Justifying Need for Admission: +Paranoia/delusions/homicidal threats toward mother per PEER. Past Psychiatric History Past Diagnosis(es)- if any: Unspecified Psychosis (F29) R/O Delusional disorder R/O Antisocial traits Past Precipitating Factors- if any: Unknown to patient. - Include inpatient and outpatient treatment Treatment History: [facility] ("3 years ago for anxiety") Dr. Dr. Jackson (former outpatient psychiatrist, last seen about 6-7 months ago. Pt reported being in tx with psychiatrist for approx 1 year. History of Suicide Attempts or Gestures Patient denied. Substance Abuse History: Alcohol: Reported drinking approx 4-5 beers "only on weekends." MAHESH: 10/19/16-10/20 - per patient. This reports coflicted with Crisis collateral from mother who indicated patient drinks "excessively." Patient denied the use of other illicit substances. Utox (-). Patient denied tobacco use. Allergies: Coded Allergies: No Known Allergies (10/22/16) Home Med List: Valum 10mg at HS every "3 nights" - Include any medical condition(s) that may - impact the patient's recovery/remission Past Medical History: Patient denied. 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 Substance Use: Patient denied a history of family substance abuse. Suicides: Patient denied a history of family suicide attempts. Social History Living Situation: Patient reported he last lived with his mother. Reported he has no desire to return to her home. Reported having a car and financial means to live elsewhere. Significant Relationships (family/friends): Patient identified his main support as his mother, who he has discord with. Education: Patient reported obtaining a Bachelors degree in business in 08/2014. He is motivated to apply for his NELSON. Vocation/Occupation: Patient reported currently being unemployed. 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 Legal: Patient reported a prior DUI at 21y/o. Denied further legal history. Healthly Behaviors Screening Tobacco Screening Tobacco Use from ED Docu: Never used - If tobacco counseling indicated - the following topics are required. - #1 Recognizing dangerous situations. - #2 Coping Skills. - #3 Basic information about quitting. Status of Tobacco Cessation Counseling: N/A B/C NO TOB USE Cessation Med Status: No Tobacco Use last 30d Alcohol Screening - ETOH screen POS if BAL >=80 or Audit-C>= M4/F3 Audit-C Score from Diag Assess: 2 Blood Alcohol Level: Laboratory Tests 10/22 1845 Toxicology Serum Alcohol (<10 MG/DL) 15.0 Alcohol Use Screening Results: Neg per Audit C &/or BAL - If ETOH counseling indicated - the following topics are required. - #1 Express concern about the patient's - drinking at unhealthy levels, include informing - of national norms for moderate drinking: - men <= 14 drinks/week, max 4 drinks/occasion - women <= 7 drinks/week, max 3 drinks/occasion - #2 Providing feedback, including linking alcohol to - negative physical effects (liver injury, hypertension) - negative emotional effects (relationship problems and - depression) - negative occupational consequences (reduced work - performance) - #3 Advising the patient to abstain from alcohol or - to drink below national norms for moderate drinking - (as listed above). Status of ETOH Use Counseling: #1, #2 AND #3 Completed. Metabolic Screening - Screen if on a Neuroleptic Medication - Metabolic screening should include: - Blood Pressure, BMI, Glucose or Hgb A1c, & a - Lipid profile from within the past 365 days. Metabolic Screening ([X]) Not Applicable, patient not on a neuroleptic. OR () Patient on a neuroleptic(s) . Enter below results for Glucose or Hemoglobin A1C, and lipid panel if obtained during the last 365 days. BMI: 25.000 Blood Pressure: 152/80 Laboratory Results (If applicable): n/a Exam and Plan Mental Status Examination Ambulation Status: Steady and independent Appearance: Average height and build, wears glasses, well-groomed, wears T-shirt and blue paper scrub pants. No visible tattoos or piercings noted. Attitude towards examiner: Calm, cooperative, focused on discharge. Psychomotor activity: WNL Behavior: WNL Quality of speech: Normal in rate and tone. Soft spoken, well articulated. Affect: Constricted. Mood: "Fine." Suicidal Ideation: Pt denied Homicidal Ideation: Pt denied Hallucinations: Pt denied AH/VH/TH. Paranoid/Delusional Material: None overtly evident on exam. Per PEER evaluation, patient made bizarre statements about resorting to capital punishment to protect his home from his mother (who owns the home). Patient also reported that during Crisis eval, he would not provide registration with demographic information for unclear reasons (?PI). Difficulties with thought organization: None evident. Insight: Limited. Judgment: Limited. Orientation: A&O to person, place and time. Cognition: Grossly intact. Memory Function: Grossly intact. Estimate of intellectual functioning: Above average. Assets/Strengths Patient Identified Assets/Strengths: Financial means, college degree, future oriented. Impression/Plan Impression and Plan: Patient is a 31-year male with an unclear psychiatric history, who self-reports a history of anxiety (formerly prescribed Valium 10mg at ), not presently in outpatient psychiatric treatment; who shows limited insight and judgement into the circumstances leading to present hospitalization. PEER and collateral from mother and former psychiatrist (obtained from Crisis Eval) indicate homicidal threats made towards the patient's mother and possible underlying psychotic/OCD disorders. Patient unwilling to sign FCO for this financial underwriter to obtain former [facility] and outpatient psychiatrist records, or to speak to his mother or former outpatient psychiatrist. Collateral will be necessary to clarify patient's psychiatric history and present concerns leading patient to present hospitalization, and to clarify appropriate treatment for targeting patient's underlying psychiatric symptoms. - Include all active medical diagnosis that require tx DSM 5 Diagnosis(es): Unspecified anxiety disorder Unspecified Psychosis R/O OCD - Initial Tx Plan for Active Psych & Medical Conditions Treatment Plan: 1. Monitor the patient on unit for safety, homicidal ideation, mood and alcohol withdrawal. 2. Attempt to obtain FCO to speak to patient's mother, former outpatient psychiatrist, and to obtain [facility] records. 3. Patient refusing medications trials at present. Continue to Offer Risperdal 1mg at HS for mood stabilization/psychosis. 4. Start prn Risperdal 0.5mg for agitation/psychosis. 5. Monitor patient for alcohol withdrawal given unclear history of consumption of alcohol. Utilize prn Ativan per CIWA protocol. VSS. 6. Admission history and physical per compliance nurse team. - Factors that would help patient function - in a less restrictive setting. Factors: Alleviation of homicidal ideation. Medication adherence. Refer patient to lower level outpatient treatment once symptoms stabilize.
--- NOTE | 2016-10-24 13:57 | History & Physical ---
General Information and HPI MD Statement: I have seen and personally examined FRANCES WORTHINGTON and documented this H&P. The patient is a 31 year old M who presented with a patient stated chief complaint of BIBA after his mother called 911. Source of Information: patient, old records Exam Limitations: no limitations History of Present Illness: 31-year-old male with past medical history significant for anxiety and psychosis not on any current medications who was admitted to Inpatient Psychiatry with homicidal ideation. Patient denies any of this. There was also report of suicidal ideation according to the records as reported by social work supervisor's note office she spoke with patient's mother. Reportedly patient had some altercation with his mother. He was making statements to harm her. Mother felt unsafe and called 911. Patient has been admitted to CPS for suicidal, homicidal ideation as well as possible psychosis. Patient denies any of this. He denies any plans of hurting himself or his mother or any other person. He currently denies any aches or pains, no complaint of fevers, chills, nausea, vomiting, headache or urinary complaints. 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 EENTM: Reports: see HPI. Cardiovascular: Reports: see HPI. Respiratory: Reports: see HPI. GI: Reports: see HPI. Genitourinary: Reports: see HPI. Musculoskeletal: Reports: see HPI. Skin: Reports: see HPI. Neurological/Psychological: Reports: see HPI. Exam & Diagnostic Data Last 24 Hrs of Vital Signs/I&O Vital Signs Date Time Temp Pulse Resp B/P Pulse O2 O2 Flow FiO2 Ox Delivery Rate 10/24 1317 81 152/80 10/24 0755 96.6 74 146/85 10/23 2023 97.8 68 136/80 10/23 1636 98.0 85 18 135/84 98 Room Air Intake & Output 10/24 1600 10/24 0800 10/24 0000 Intake Total Output Total Balance Patient 168 lb Weight Physical Exam General Appearance Alert, Oriented X3, Cooperative Skin No Rashes HEENT PERRLA Neck Supple Cardiovascular Regular Rate, Normal S1, Normal S2 Lungs Clear to Auscultation Abdomen Normal Bowel Sounds, Soft, No Tenderness Neurological Cranial Nerves II through XII: intact Extremities No Edema Last 24 Hrs of Labs/Mynor: Laboratory Tests 10/22 10/22 1845 1845 Chemistry Sodium (137 - 145 mmol/L) 144 Potassium (3.5 - 5.1 mmol/L) 4.4 Chloride (98 - 107 mmol/L) 98 Carbon Dioxide (22 - 30 mmol/L) 31 H Anion Gap (5 - 16) 15 BUN (9 - 20 mg/dL) 14 Creatinine (0.7 - 1.2 mg/dL) 0.9 Estimated GFR (>60 ml/min) > 60 BUN/Creatinine Ratio (7 - 25 %) 15.6 Glucose (65 - 99 mg/dL) 105 H Calcium (8.4 - 10.2 mg/dL) 9.6 Total Bilirubin (0.2 - 1.3 mg/dL) 0.6 AST (17 - 59 U/L) 46 ALT (21 - 72 U/L) 40 Alkaline Phosphatase (< 127 U/L) 57 Total Protein (6.3 - 8.2 g/dL) 8.9 H Albumin (3.5 - 5.0 g/dL) 5.2 H Globulin (1.9 - 4.2 gm/dL) 3.7 Albumin/Globulin Ratio (1.1 - 2.2 %) 1.4 Triglycerides (<150 mg/dL) 100 Cholesterol (< 200 MG/DL) 305 H LDL Cholesterol, Calc (65 - 129 mg/dL) 188 H HDL Cholesterol (40 - 60 mg/dL) 97 H Cholesterol/HDL Ratio (0.00 - 4.88 %) 3 Hematology CBC w Diff NO MAN DIFF REQ WBC (4.8 - 10.8 /CUMM) 6.7 RBC (4.70 - 6.10 /CUMM) 5.13 Hgb (14.0 - 18.0 G/DL) 14.9 Hct (42 - 52 %) 44.2 MCV (80.0 - 94.0 FL) 86.3 MCH (27.0 - 31.0 PG) 29.0 RDW (11.5 - 14.5 %) 13.1 Plt Count (130 - 400 /CUMM) 255 MPV (7.4 - 10.4 FL) 8.0 Gran % (42.2 - 75.2 %) 75.7 H Lymphocytes % (20.5 - 51.1 %) 16.8 L Monocytes % (1.7 - 9.3 %) 6.9 Eosinophils % (0 - 5 %) 0.4 Basophils % (0.0 - 2.0 %) 0.2 Absolute Granulocytes (1.4 - 6.5 /CUMM) 5.1 Absolute Lymphocytes (1.2 - 3.4 /CUMM) 1.1 L Absolute Monocytes (0.10 - 0.60 /CUMM) 0.5 Absolute Eosinophils (0.0 - 0.7 /CUMM) 0 Absolute Basophils (0.0 - 0.2 /CUMM) 0 PUBS MCHC (33.0 - 37.0 G/DL) 33.6 Toxicology Urine Opiates Screen (>2000 NG/ML) < 100.00 Methadone Screen (>300 NG/ML) < 40 Barbiturate Screen (>200 NG/ML) < 60 Ur Phencyclidine Scrn (>25 NG/ML) < 6.00 Amphetamines Screen (>1000 NG/ML) < 100 U Benzodiazepines Scrn (>200 NG/ML) > 800 H Urine Cocaine Screen (>300 NG/ML) < 50 Urine Cannabis Screen (>50 NG/ML) < 5.00 Serum Alcohol (<10 MG/DL) 15.0 Assessment/Plan Assessment: 31-year-old male who is admitted to Inpatient Psychiatry with homicidal/suicidal ideation. Patient also had some delusional disorder. I noticed slightly high blood pressure. I will monitor it but if remains consistently high then I will order antihypertensives. Patient currently denies any medical issues. Psychiatry management is up to the psychiatrist. As Ranked By This Provider Problem List: 1. Delusional disorder 2. Antisocial personality disorder in adult 3. Anxiety Miscellaneous Miscellaneous Documentation Attending Case Discussed With: Thea Thompson MD Primary Care Physician: UNKNOWN Patient sees these Specialists none Level of Patient Care: KARIE Garcia
--- NOTE | 2016-10-24 14:19 | NUR ---
Pt was not visible much in the milieu today. He has been isolating a lot in his bedroom. Pt did not come out for groups, and is not interacting much with his peers. On the other hand, pt has been cooperative with getting his vital signs. When asked pt denies thoughts of hurting himself.
--- NOTE | 2016-10-24 15:03 | SOCIAL WORKER TX PLAN PSYCH ---
Treatment Plan - Please Document: - Evidence that there is ongoing collaboration between - the patient and the interdisciplinary team, - including the patient's active participation and - responsibility for engaging in the treatment regimen, - and that the treatment plan is individualized and - relevant to the patient's conditions. - Treatment plan should reflect documentation indicating - that all active therapeutic efforts are included. Strengths/Capabilities: Did complete a college business degree, Mother is supportive, although relationship emeshed and strained. Physical Limitations (Interventions): none reported Patient Identified Trmt Goals: " I don't need to be here. I want to leave." Discharge Plan: IOP Problem/Goals #1 Problem #1: homicidal ideation Goal (Short Term): Today I will attend 2 groups Today I will identify 2 stressors Today I will identify 2 positive supports Today I will work on recognizing 3 emotions I am feeling Goal (Fabric Worker): Be free of homicidal thoughts/attempts Develop 3 coping skills to deal with anxiety Identify 3 positive support systems to call in crisis Develop a crisis plan with 3 asndy people Identify 2 positive traits per week about myself Identify 2 things I have to look forward to Identify 2 positive people in my life and 1 thing I appreciate about them Interventions: Learn ways to manage depressive symptoms accordingly and identify positive supports to manage life stressors and mood fluctuations. Modalities: Encourage groups, education on depression, provide CBT treatment, family meeting. DSM5/PS Stressors/Medical Prob Diagnosis' (DSM 5, Stressors, Medical): Unspecified Schizophrenia spectrum and other psychotic D/O F29, R/O Delusional Disorder, Antisocial traits Current GAF: 27 Treatment Team - Responsibilities of members of the treatment team include: - Medication Management- MD or POSTAL DELIVERY OFFICER - Medication Administration and Monitoring- Nurse - Group Therapy- Occupational Therapist - 1:1 Therapy,Disch Planning,family involvement-Reimbursement Auditor
--- NOTE | 2016-10-24 15:05 | SOCIAL WORKER PROG NOTE PSYCH ---
Social Work Progress Note Progress Note Met with patient briefly for the first time this afternoon. Patient found meditating in his bedroom. Patient was calm and cooperative when we met. He has agreed to allow his mother to come in for a family meeting while in the hospital. I have left a voicemail with patients mother, Kasey, asking to call back to schedule family meeting. Patient was also given information to call and activate [employer] insurance.
[2016-10-24 15:55] VITALS: BP 137/78
[2016-10-24 20:15] VITALS: BP 146/79
--- NOTE | 2016-10-24 23:23 | NUR ---
Patient present on the unit. Quite keeps to self, observes from the periphery. Patient is pleasant, declining some medications that are prescribed. Appropriate behavior while in milieu.
[2016-10-25] VITALS (8 sets, daily range): BP systolic 135–155; BP diastolic 74–97
--- NOTE | 2016-10-25 04:29 | NUR ---
SLEPT WELL UNTIL ABOUT 0400, READ A BOOK IN THE LOUNGE FOR A SHORT TIME AND RETURNED TO BED, CALM AND COOPERATIVE.
--- NOTE | 2016-10-25 14:06 | SOCIAL WORKER PROG NOTE PSYCH ---
Social Work Progress Note Progress Note Met with patient for a long period of time this AM. Patient continues to be preoccupied with the thought of discharging the hospital and does not feel he needs to be here. I offered numerous times throughout our meeting that he may file a probable cause if he would like to do so. At this time patient does not wish to do so. Patient does appear somewhat paranoid, refusing to sign any CFO's for any outside providers or his mother. Patient refusing today for me to invite his mother in for a family meeting stating that whatever she says will be used against him. He continues to deny making any threats to her and believes he is innocent and is being held hear against his right. Patient continues to refuse medications and states that he only has anxiety and needs Valium. Patient refusing for us to speak to any outside family or friends at this time stating that he does not want to get them involved. Patient states that when he discharges he plans to either get a hotel, stay with a friend, an ex girlfriend or his brother. He reports that he was in the process of moving out of his mothers house and does not wish to return there. He reports that he plans to be civil with his mother but does not want to reside with her going forward. Patient reports that he had job opportunities/ interviews this week that he is missing due to being in the hospital. He reports concern over bills not being paid and plans to apply for his NELSON. He appears to have numerous goals and plans but it is unclear how realistic these plans are for patient at this time. Patient was very calm and cooperative during our meeting. He did agree to start attending more groups on the unit and being more present in the milieu. Patient aware that we would like to have contact with some type of family/friend/ provider, but patient continues to refuse. Patient denies SI/HI/AH/VH at present.
--- NOTE | 2016-10-25 14:20 | NUR ---
PT HAS BEEN ISOALTIVE IN ROOM FOR PART OF SHIFT BUT OUT IN COMMUNITY FOR OTHERS. PT ATTENDED SOME GROUPS TODAY. PT MOOD IS STABLE WTIH A FULL RANGE AFFECT. PT REPROTS A LITTLE ANXIETY. PT DENIES SI THOUGHTS.
--- NOTE | 2016-10-25 16:26 | CP SOUTH PROGRESS NOTE PSYCH ---
Psych (Inpt) Progress Note Progress Note Include the following elements, when applicable: Involvement in the active treatment of the patient with behavioral observations of the patient and the patient's response to the treatment. Review of the ongoing treatment process in the context of the treatment plan. Indication of how multi-disciplinary staff members are carrying out the treatment plan. Plans for future interventions and recommendations for revision of the treatment plan. Liaison with other physicians/providers. Progress Note: [I discussed this patient's progress to date, current mental status, treatment process in the context of the treatment plan, and discharge planning with staff/ team in the daily morning inpatient team meeting. I also met with the patient myself in individual session.] SUBJECTIVE: "I don't understand why I'm here." OBJECTIVE: Current Medications Sig/Bibiana Start time Last Medication Dose Route Stop Time Status Admin Acetaminophen 650 MG Q4P PRN 10/23 2045 AC PO Al Hydroxide/Mg 30 ML Q4-PRN PRN 10/23 204 AC Hydroxide PO Benztropine Mesylate 0.5 MG 10/24 2200 DC PO Benztropine Mesylate 0.5 MG Q6-PRN PRN 10/24 1745 CAN PO Diazepam 10 MG .STK-MED ONE 10/24 2130 DC PO 10/24 2131 Diazepam 10 MG AT BEDTIME 10/23 2200 AC 10/24 PO 2135 Haloperidol 5 MG Q6-PRN PRN 10/23 1230 DC PO Lorazepam 1 MG Q2 HRS NEEDED PRN 10/24 1730 AC PO Lorazepam 2 MG Q2 HRS NEEDED PRN 10/24 1730 AC PO Lorazepam 1 MG Q6-PRN PRN 10/23 1230 DC PO Magnesium Hydroxide 30 ML Q6-PRN PRN 10/23 2045 AC PO Multivitamins 1 TAB 0800 10/25 1500 AC 10/25 PO 1632 Quetiapine Fumarate 50 MG 10/25 UNVr PO Quetiapine Fumarate 50 MG Q6-PRN PRN 10/25 1730 UNVr PO Risperidone 0.5 MG Q6-PRN PRN 10/24 1745 DC PO Risperidone 1 MG AT BEDTIME 10/23 2200 DC PO Vital Signs Date Time Temp Pulse Resp B/P Pulse O2 O2 Flow FiO2 Ox Delivery Rate 10/25 1544 88 145/79 10/25 1238 96 135/74 10/25 1232 96 135/74 10/25 0802 96.8 98 155/97 10/25 0758 96.8 98 155/97 10/24 2014 97.4 82 146/79 ASSESSMENT: Reviewed chart, progress notes, medication list, VS, and labs. Reviewed patient' s progress with nursing staff and Whit Gautam LCSW. Met with patient today. Speech was normal in rate, tone and volume. Affect was calm and full-range. Mood was "fine." Eye contact was appropirate. Demeanor was calm and polite. He spoke of sleep difficulties earlier during hospitalization related to a disruptive roommate, and a roommate who snored loudly. Since, he reported his room has changed and with earplugs he has been sleeping well. Reported having a good appetite. Expressed some concerns over being in hospital, and having bills that need to be paid. Additionally expressed how hospitalization is delaying him to filing applications to pursue [employer] programs. He denied acute symptoms of anxiety and depression. Reported attempting to contact his mother twice by phone, and that she has not returned his phone calls. Expressed ambivalence as to why his mother would not sun to contact him, given her alleged reports which intiated this hospitalization. Reviewed with patient given the alleged reports, that his mother may be frightened by him. Verbally reviewed again with patient the statements documented on [facility] evaluation and crisis eval collateral obtained from his mother, regarding concern for HI towards her and bizarre statements he allegedly made. He denied making all statements, and spoke of having a poor relationship with his mother, rooted in his mother's history of overexaggerating. Patient reported she overexaggerated over a former verbal argument had with the patient, however the patient wouldn't elaborate further on this. Patient continued to refuse to darien permission for this journalists and other writers to contact his mother, his former outpatient psychiatrist, or records from prior [facility] hospitalization, reporting "those hold no relevance to me be being here." Explained to patient that there is a gap in the narrative which led to his hospitalization and that more information would help clarify present hospitalization. Patient remained adament that further collateral would not help clarify present situation, and refused to sign ROIs to speak to these parties. Patient denied passive and active suicidal ideation, plans and intent. He denied homicidal ideation toward his mother and towards others. He denied homicidal plans/intent. Thought process appeared calculated, as he was selectively vague when probed about circumstances leading to hospitalization and quickly articulated superficial responses. Thought content was appropriate. There was no evidence trev delusions or overt paranoia. He denied auditory and visual hallucinations. Cognition was grossly intact. Reviewed medication options to target anxiety, given that patient identified this as a primary psychiatric symptom. Conversely, he reported "I don't have a psychiatric problem, and will not take a psychiatric medication." Patient expressed associated stigma with psychiatric medications, and this being a barrier to trialing a psychotropic medication. BZD education was provided to patient, on tolerance over long-term use, and risks when combined with alcohol. Patient was not agreeable to tapering off of Valium at present, or trialing an alternative psychotropic medication, such as Seroquel or Zyprexa to target anxiety. Seroquel and Zyprexa reviewed with patient based on Crisis eval collateral obtained from former psychiatrist Dr. Jackson (this collateral was obtained by Dr. Dawn) who stated the patient may have an underlying psychotic disorder or OCD spectrum symptoms. Patient was offered to sign probable cause, given his reports that he does not want to remain in hospital. Probable cause paper reviewed with patient, who refused to sign. PLAN: 1. Continue current medications, for now. 2. Consider reducing Valium over the weekend, and encourage trial of alternative psychotropic to target symptoms of anxiety. 3. Offer Seroquel 50mg at HS for anxiety; Seroquel 50mg prn Q6H for anxiety/ agitation/insomnia. 4. Start multivitamin per patient request. 5. Continue monitoring patient on unit for safety, mood, ? symptoms of psychosis. 6. Continue to encourage patient to sign FCO for mother, former psychiatrist ( Dr. Jackson), [facility] records to obtain further collateral. 7. Dispo planning per primary team.
--- NOTE | 2016-10-25 20:17 | NUR ---
CAREPLAN WAS ORIGINALLY COMPLETED BY ADMITTING NURSE ISABEL CHENEY. IT APPARENTLY DID NOT SAVE TO COMPUTER RECORD. IT WAS REDONE BY THIS RN OBEY, SHE WAS PRESENT AT TIME OF INTERVIEW AND AWARE OF PT STATUS ON DAY HE WAS ADMITTED TO [facility].
--- NOTE | 2016-10-25 21:36 | NUR ---
PT IS STABLE, GUARDED AND WITH FULL RANGE OF AFFECT. PT HAS BEEN VISIBLE WITHIN THE COMMUNITY AND INTERACTING WITH PEERS. PT IS APPROPRIATE TO UNIT AND PLEASANT. CURRENTLY SITTING IN THE LOUNGE QUIETLY WATCHING TV. VS ARE STABLE AND DENIES ANY SI/HI TO THIS MHW.
[2016-10-26 12:26] VITALS: BP 144/78
[2016-10-26 12:50] VITALS: BP 144/78
--- NOTE | 2016-10-26 13:52 | NUR ---
PT ISOLATED IN HIS ROOM ALL MORNING. HE REFUSED GROUPS. HE DENIES NEED TO BE IN THE HOSPITAL. HE APPEARS GUARDED AND HE BARELY INTERACTS WITH STAFF OR PEERS. PT DENIES SUICIDAL THOUGHTS. HE HAS BEEN REFUSING MEDS EXCEPT VALIUM AND MULTIVITAMIN
--- NOTE | 2016-10-26 13:56 | CP SOUTH PROGRESS NOTE PSYCH ---
Psych (Inpt) Progress Note Progress Note Include the following elements, when applicable: Involvement in the active treatment of the patient with behavioral observations of the patient and the patient's response to the treatment. Review of the ongoing treatment process in the context of the treatment plan. Indication of how multi-disciplinary staff members are carrying out the treatment plan. Plans for future interventions and recommendations for revision of the treatment plan. Liaison with other physicians/providers. Progress Note: Had extensive discussion on how he has been doing, future plans, etc. Stated that he has been meditating, reading books, socializing, watching movies while he is here. 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 Explained that he was self tapering from valium; that he does not see any benefit in an SSRI, that he believes that valium is a better medication for anxiety for him. Will not take any other medications including other anxiety medications. Stated that he needs higher dose of valium already; b/c his normal coping skills (exercise, leisure, etc) he is unable to do here. We discussed changing dosing to split 5mg twice daily but he declined; he did want to have the full 10mg in the morning instead of at night time. Continued to decline to sign any releases for collateral contact stated that while he speaks w/ his brother who lives in [facility], he doesnt want to pit my brother against my mom and declined to have any contact. Somewhat intrusive near end, asking questions about my personal beliefs about psychiatry, tx, etc. MSE: young man; well groomed. Calm and cooperative. Good eye contact. No psychomotor changes evident. No movement d/o. Speech regular rate and rhythm. Mood neutral, affect constricted and limited reactivity. Thought process somewhat tangential. No overt thought content abnormalities evident stated that he was applying to business school, family has doctors and sheltered workshop executive director, no reason to believe this is grandiose or otherwise delusional. Refusal to sign releases may be guardedness/paranoia? Some oddness, overly related at times, and somewhat monotone/with limited reactivity of affect. Denies SI/HI. No AH/VH. Insight impaired, judgment adequate. Risk associated w/ violent threats, behavioral dysregulation according to family ; guardedness. Manage w/ education, med titration, mileu therapy, groups. A: 31 y/o man w/ hx some psychiatric tx, admitted with threats toward his mother , bizarre statements; currently calm and superficially cooperative but refusing to sign releases for collateral contacts; and declining any medication changes. Plan: change valium 10mg to day time dosing. Attempted again to educate and discuss risks of chcf bz use compared to SSRI; declined. Continues to decline antipsychotic. Impression some oddness in statements, limited affect reactivity, occasional intrusiveness; but no overt paranoia nursing staff report that he becomes tangential, overly focused on some things and needs long winded explanations and details regarding things such as his PEC, unit protocols; little insight to circumstances of his admission some element of thought disorder is likely. Continue to eval for sx of psychosis vs perhaps some personality d/o traits? If available and patient agreeable, psychological testing could discern for more subtle thought disorder sx.
[2016-10-26 16:12] VITALS: BP 155/96
[2016-10-26 16:22] VITALS: BP 155/96
[2016-10-26 20:22] VITALS: BP 153/79
[2016-10-26 20:31] VITALS: BP 153/79
--- NOTE | 2016-10-26 22:56 | NUR ---
PT IS CALM, COOPERATIVE WITH STAFF AND PEERS, AND COMPLIANT WITH UNIT RULES. PT REMAINS IN MILIEU, AND INTERACTS WELL WITH STAFF/PEERS. MOOD IS STABLE, AFFECT IS EUTHYMIC TO FULL RANGE, COMMUNICATION IS NORMAL, AND APPETITIE IS NORMAL. PT DENIES SI AT THIS TIME.
--- NOTE | 2016-10-27 05:40 | NUR ---
PATIENT SLEPT FROM 0315 AND IS STILL SLEEPING AT CURRENT TIME.
[2016-10-27 12:31] VITALS: BP 150/77
[2016-10-27 13:38] VITALS: BP 150/77
--- NOTE | 2016-10-27 14:27 | NUR ---
Pt is A&O X 3, continue to isolates in his room on bed rest, refused his vital signs to be checked, and continues to be guarded to the staff for any s/s. Patient presented with illogical thinking when spoken to, mood is stable with full range affect, minimal peers interaction, denies any suicidal thought and thought of harming someone else.
--- NOTE | 2016-10-27 14:55 | CP SOUTH PROGRESS NOTE PSYCH ---
Psych (Inpt) Progress Note Progress Note Include the following elements, when applicable: Involvement in the active treatment of the patient with behavioral observations of the patient and the patient's response to the treatment. Review of the ongoing treatment process in the context of the treatment plan. Indication of how multi-disciplinary staff members are carrying out the treatment plan. Plans for future interventions and recommendations for revision of the treatment plan. Liaison with other physicians/providers. Progress Note: No behavioral issues; very calm and constricted affect somewhat. Nursing staff stated he remains preoccupied w/ his PEC and needs long explanation about it; he did not have any concerns w/ me about this. Continued to decline signing releases or having me contact his family. Slept well, no issues w/ daytime valium. MSE: young man; well groomed, with fair eye contact. Cooperative, calm. No psychomotor agitation/slowing. No tics/tremor/movement d/o. Speech regular rate and rhythm. Mood neutral, affect constricted, somewhat limited reactivity, remains. Thought process linear today; not tangential. No overt delusions or other major thought abnormalities evident; guarded about family; apart from that no gross abnormalities. No evidence of thoughts to harm self/others. No AH/VH. Insight impaired, judgment adequate. Risk associated w/ violent threats, behavioral dysregulation according to family ; guardedness. Manage w/ education, med titration, mileu therapy, groups. A: 31 y/o man w/ hx some psychiatric tx, admitted with threats toward his mother , bizarre statements; has been calm, cooperative, somewhat odd and perseverative at times; but guarded and declining to have any family involvement with his care. Plan: continue current plan of care. May be somewhat odd/guarded but nothing overt noted; with prolonged conversation nursing note that he becomes perseverative and somewhat more disorganized; can further explore.
[2016-10-27 16:23] VITALS: BP 149/77
[2016-10-27 16:42] VITALS: BP 149/77
[2016-10-27 20:12] VITALS: BP 157/91
[2016-10-27 20:16] VITALS: BP 157/91
--- NOTE | 2016-10-27 21:35 | NUR ---
PT IS VISIBLE ON UNIT, SOCIAL WITH PEERS AND WATCHING TV IN LOUNGE. ATTENDED WRAP UP MEETING AND PARTICIPATED. NO COMPLAINTS OR SI REPORTED. PT HAS A STABLE MOOD AND FULL RANGE AFFECT.
[2016-10-28] VITALS (7 sets, daily range): BP systolic 118–155; BP diastolic 66–90
--- NOTE | 2016-10-28 04:26 | NUR ---
AWAKE UNTIL 314 THIS PT. ALSO NOT HAPPY WITH STAFF AND RULES.
--- NOTE | 2016-10-28 13:30 | CP SOUTH PROGRESS NOTE PSYCH ---
Psych (Inpt) Progress Note Progress Note Include the following elements, when applicable: Involvement in the active treatment of the patient with behavioral observations of the patient and the patient's response to the treatment. Review of the ongoing treatment process in the context of the treatment plan. Indication of how multi-disciplinary staff members are carrying out the treatment plan. Plans for future interventions and recommendations for revision of the treatment plan. Liaison with other physicians/providers. Progress Note: [I discussed this patient's progress to date, current mental status, treatment process in the context of the treatment plan, and discharge planning with staff/ team in the daily morning inpatient team meeting. I also met with the patient myself in individual session.] SUBJECTIVE: "I don't trust either of you." OBJECTIVE: Current Medications Sig/Bibiana Start time Last Medication Dose Route Stop Time Status Admin Acetaminophen 650 MG Q4P PRN 10/23 2045 AC PO Al Hydroxide/Mg 30 ML Q4-PRN PRN 10/23 2045 AC Hydroxide PO Diazepam 10 MG DAILY 10/27 1000 AC 10/28 PO 0959 Lorazepam 1 MG Q2 HRS NEEDED PRN 10/24 1730 AC PO Lorazepam 2 MG Q2 HRS NEEDED PRN 10/24 1730 AC PO Magnesium Hydroxide 30 ML Q6-PRN PRN 10/23 2045 AC PO Multivitamins 1 TAB 0800 10/25 1500 AC 10/28 PO 0959 Quetiapine Fumarate 50 MG 10/25 2200 DC PO Quetiapine Fumarate 50 MG Q6-PRN PRN 10/25 1730 AC PO Vital Signs Date Time Temp Pulse Resp B/P Pulse O2 O2 Flow FiO2 Ox Delivery Rate 10/28 1246 74 155/89 10/28 1220 74 155/89 10/28 08 96.3 87 142/90 10/28 0826 96.3 87 142/90 10/27 2015 97.6 89 157/91 10/27 2011 97.6 89 157/91 10/27 1642 67 149/77 10/27 1623 67 149/77 10/27 1338 86 150/77 ASSESSMENT: Chart, progress notes, medication list, VS and labs reviewed. Discussed patient' s progress with nursing staff and in morning treatment team meeting. Met with the patient today at 1:31PM, together with Whit Gautam LCSW. Patient initially presented calm and cooperative on encounter. He shared about the issues that occured over the weekend involving particular patients, and appeared to lose focus on why he presently remains hospitalized. This technical writer and editor and Whit Gautam LCSW revisited the concerns reported from [facility] and collateral from his mother that had been related to the home health clinician in ED. Patient continued to report that his mother overexaggerated, and that he never made reports or actions to harm his mother or others. Whit Gautam LCSW shared with the patient the information received from his mother this morning via phone (see her note for details), which led to the patient becoming upset and verbally abusive to Whit Gautam LCSW and later this technical writer and editor. Patient made reports that Whit Gautam LCSW was making up the information related from his mother, and became hostile. The patient then began verbally targeting this technical writer and editor, stating that this technical writer and editor misguided him regarding prescribed medications. Patient was under the impression that his Valium would be increased to further target his symptoms of anxiety. This technical writer and editor explained that this had never been promised, and instead this technical writer and editor had reviewed with the patient alternative psychotropics such as Seroquel, Zyprexa, and SSRIs, to target anxiety, given the risks of long-term BZD use, which the patient refused. This technical writer and editor informed the patient that it would be helpful to speak to his outpatient psychiatrist, regarding past efficacious prescribed medications. Patient however refused to sign a FCO for this technical writer and editor to speak with outpatient psychiatrist, or his mother. Patient refused further medication changes at this time. Patient denied active and passive suicidal ideation, plans and intent. He denied homicidal ideation towards his mother and others, denied HI plans and intent. He denied auditory and visual hallucinations. Appeared somewhat paranoid related to primary team's request to contact outpatient psychiatrist and mother. He denied feeling hopeless, helpelss and worthless. He denied feeling guilty. He denied acute symptoms of depression. Reported feeling somewhat anxious related to remaining in hospital. Reported appetite and sleep were good. PLAN: 1. Continue current medications. 2. Continue monitoring the patient on unit for safety and mood. 3. Will initiate duty to warn to patient's mother, when patient's discharge date is set. 4. Dispo planning per primary team.
--- NOTE | 2016-10-28 14:05 | NUR ---
out in commuity going to groups. interacts well with peers. denied thoughts of self harm when asked. Mood is stable, euthymic affect.
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
--- NOTE | 2016-10-28 23:03 | NUR ---
PT IS CALM, COOPERATIVE WITH STAFF AND PEERS, AND COMPLIANT WITH UNIT RULES. PT IS IN MILIEU, INTERACTING WITH PEERS AND STAFF. PT MOOD IS STABLE, AFFECT IS SLIGHTLY FLAT AND CONSTRICTED, COMMUNICATION IS NORMAL, AND APPETITE IS NORMAL. PT DENIES SI AT THIS TIME.
--- NOTE | 2016-10-29 07:10 | NUR ---
SLEPT ALL NIGHT.
[2016-10-29 08:17] VITALS: BP 141/75
[2016-10-29 08:18] VITALS: BP 141/75
[2016-10-29] MEDS ORDERED: VALIUM10 M1 PO (11:32)
[2016-10-29] MEDS ORDERED: ONE DAILY MULT1 EAC2 PO (11:32)
--- NOTE | 2016-10-29 11:33 | CP SOUTH PROGRESS NOTE PSYCH ---
Psych (Inpt) Progress Note Progress Note Include the following elements, when applicable: Involvement in the active treatment of the patient with behavioral observations of the patient and the patient's response to the treatment. Review of the ongoing treatment process in the context of the treatment plan. Indication of how multi-disciplinary staff members are carrying out the treatment plan. Plans for future interventions and recommendations for revision of the treatment plan. Liaison with other physicians/providers. Progress Note: [I discussed this patient's progress to date, current mental status, treatment process in the context of the treatment plan, and discharge planning with staff/ team in the daily morning inpatient team meeting. I also met with the patient myself in individual session.] SUBJECTIVE: "I'm doing fine." OBJECTIVE: Current Medications Sig/Bibiana Start time Last Medication Dose Route Stop Time Status Admin Acetaminophen 650 MG Q4P PRN 10/23 2045 AC PO Al Hydroxide/Mg 30 ML Q4-PRN PRN 10/23 2045 AC Hydroxide PO Diazepam 10 MG DAILY 10/27 1000 AC 10/29 PO 0829 Lorazepam 1 MG Q2 HRS NEEDED PRN 10/24 1730 AC PO Lorazepam 2 MG Q2 HRS NEEDED PRN 10/24 1730 AC PO Magnesium Hydroxide 30 ML Q6-PRN PRN 10/23 2045 AC PO Multivitamins 1 TAB 0800 10/25 1500 AC 10/29 PO 0829 Quetiapine Fumarate 50 MG 0 10/25 2200 DC PO Quetiapine Fumarate 50 MG Q6-PRN PRN 10/25 1730 AC PO Vital Signs Date Time Temp Pulse Resp B/P Pulse O2 O2 Flow FiO2 Ox Delivery Rate 10/29 0818 96.2 68 141/75 10/29 0817 96.2 68 141/75 10/28 195 98.3 76 16 140/76 10/28 1944 98.3 76 140/76 10/28 1540 96 118/66 10/28 1539 96 118/66 10/28 1246 74 155/89 10/28 1220 74 155/89 ASSESSMENT: Reviewed case with Dr. Crawford, Meagan Steve ([facility] Milk Tester Hepatologist), Whit Gautam LCSW, Gladys Clifton CPS Fishing Game Warden, and [facility] treatment team. Reviewed the collateral obtained from the patient's mother from initial Crisis ED evaluation, and Remington PEER. Patient has consistently denied homicidal ideation, intent, plans towards his mother and others during hospital course. Patient refused multiple psychotropic medication trials and resistant to milieu therapy on unit. Per CPS treatment team, patient is deemed psychiatrically cleared for discharge. A duty to warn phone conversation was made by Whit Gautam LCSW, today, at 11:05AM (this race and sports book writer present as a witness), notifying the patient's mother that the patient will be discharged from [facility] today, on 10/29/16 at 4PM. Patient's mother verbalized understanding of this information and was informed that if she feels unsafe to notify her local police department. A duty to warn certified letter was sent to the patient's mother (See Whit Gautam LCSW's note for additional information). Patient's mother verbalized understanding of information. Patient's course of treatment was not discussed with the patient's mother during this phone call as the patient to date has refused to sign a FCO for treatment team to disclose treatment information to his mother. Patient's mother verbalized understanding of all information. Met with the patient today, on the date of discharge, together with Whit Gautam LCSW. Patient presented calm and cooperative. Speech was normal in rate, tone and volume. Eye contact was appropriate. Affect was calm and constricted. Mood was "good." He denied passive and active suicidal ideation, plans and intent. He denied passive and active homicidal ideation, plans and intent towards his mother and anyone else. He verbalized understanding of the legal consequences if he were to take action to harm his mother or anyone else. Patient, again, denied ever endorsing homicidal ideation, plans or intent towards his mother or anyone else. Patient stated and also believed he will not harm himself or others. Patient was informed that his mother would be contacted as a duty to warn, this morning, to notify that he would be discharged from [facility] at 4PM today. Patient verbalized understanding of this information, and accepted information appropriately. He denied paranoid ideation, delusions, and auditory and visual hallucinations. He denied acute symptoms of anxiety and depression. He denied feeling hopeless, helpless, and worthless. He denied feeling guilty. Thought process was organized and linear. Thought content was appropriate. Patient did not present as an imminent danger to himself or others. Patient reported feeling safe and ready for discharge. Patient reported tolerating prescribed medications well, and denied untoward medication effects. PLAN: 1. Discharge today. 2. F/u with OPS intake on 10/31/16 at 10:45AM with Juanita MOREL; and on 11/06/2016 at 12:30PM for medication intake with Dr. Hardy. 3. Abstain from all substances. 4. In the event of an emergency, call [phone] to nearest emergency department.
--- NOTE | 2016-10-29 12:06 | SOCIAL WORKER PROG NOTE PSYCH ---
Social Work Progress Note Progress Note Jose team met this AM and has made a decision that at this time patient does not fit clinical criteria for inpatient hospitalization, and can be discharged from the hospital today. Patient continues to deny SI/HI/AH/VH, refuses medication management and refuses any contact with outside family/providers. As a team we met with [facility]'s rn paralegal, Meagan Arevalo, to discuss Duty to Warn responsibility to inform patients mother of patients discharge from the hospital. After thoroughly discussing Duty to Warn, we have agreed that it is appropriate to inform mother that patient will be discharging the hospital today and we also plan to inform patient we are doing so. I met with patient with Emma Odonnell APRN and skilled nursing facilities professional of [facility], Gladys Clifton, and informed patient that we are considering discharge for today. Patient was pleased to hear this information. He was also notified that we would arrange him an appointment with OP for med management as we had discussed yesterday. Patient was then notified by this brief writer that due to previous concerns reported by his mother, we feel it is our responsibiity to notify his mother of his discharge today. Patient responded appropriately and did not offer any complaints. Patient was aware that I was going to be calling his mother and he also offerred to call his mother if I was unable to get through. After completing our meeting with patient, I then proceed to call patients mother, Kasey([phone]), on speaker phone with Emma Odonnell APRN present. Mother answered the phone and I informed her that she was on speaker with Emma present during conversation. I then informed mother that I am still unable to discuss or disclose anything regarding patients treatment, but I do feel the need to inform her that patient will be discharged from the hosptial today, around 4PM. Patients mother was very concerned with this information and expressed her concerns. I informed mother that I could not give her any suggestions or more information at this time but that if she was concerned for her safety she should contact her local police department. A letter was written and sent via fed-ex over night today to mothers house also confirming our conversation this AM. Tracking # of letter [id number] and letter is estimated to arrive tomorrow at 10:30am.
--- NOTE | 2016-10-29 12:07 | DISCHARGE SUMMARY REPORT-PSYCH ---
See Addendum Visit Information Visit Dates/Diagnosis' Admission Date: 10/23/16 Discharge Date: 10/29/16 Reason for Admission: HI toward his mother per Donnell PEER and collateral from mother in ED Crisis evaluation. Psy Discharge Primary Diag: Unspecified anxiety disorder Psy Discharge Secondary Diag: R/O OCD; R/O Cluster B traits; R/O Unspecified psychosis; R/O Alcohol use disorder. Hospital Course Course Complications: None. Consultations: Patient was seen for admission history and physical by Dr. Hien Thompson. Please see her note for additional information. Allergies: Coded Allergies: No Known Allergies (10/22/16) Hospital Course/TX Response: The patient was monitored on the unit for safety, homicidal ideation, mood and ? paranoia. He selectively participated in multimodal treatments on the unit, and refused trials of psychotropic medications such as Zyprexa and Risperdal for treatment of possible underlying paranoia, and refused trials of Seroquel and SSRIs for treatment of anxiety. Patient was maintained on home medication of Valium 10mg at for anxiety, which was rescheduled to [facility] per patient's request. Patient tolerated medication well and denied untoward medication effects. During the hospital course, the patient consistently denied homicidal ideation towards his mother and anyone else. He consistently denied homicidal plans and intent towards his mother and anyone else. He denied passive and active suicidal ideation, plans and intent. He denied auditory and visual hallucinations. Thought process was linear and goal-directed. Patient consistently refused to darien permission for his treatment team to speak to his former outpatient psychiatrist Dr. Jackson (who last saw him approximately 6-7 months ago), his mother, or [facility] where he had been hospitalized in the past. There was questionable paranoia surrounding his primary team requesting to speak to these sources. The patient refused permission for his family or friends to be involved in his inpatient treatment, and therefore no family meeting or phone conference was held. Patient's case was reviewed daily with [facility] treatment team, and prior to discharge, was reviewed at length with Dr. Crawford, Gladys Clifton CPS Television Writer, Whit Gautam LCSW, this travel writer, and [facility]'s paralegal legal secretary, Meagan Arevalo, to discuss Duty to Warn responsibility to inform the patient's mother of patient's discharge from the hospital. Patient was informed that primary team would inform his mother of his discharge on 10/29/16, and responded appropriately to this information. Patient's mother was telephonically informed by Whit Gautam LCSW (and this travel writer was present) of patient's discharge at 4PM on 10/29/16. She conveyed her concerns, and was informed by Whit Gautam LCSW that if she remained concerned for her safety to notify her local police department. Patient's mother verbalized understanding of instruction and information. A letter was written as a duty to warn and sent via fed-ex over night on 10/29/16 to the patient's mother's house also confirming Whit Gautam LCSW's telephonic notification of the patient's discharge on 10/29/16 at 4PM. Tracking # of letter [id number] and letter is estimated to arrive on 10/30/16 at 10:30am. The patient was in favor of discharge plan to follow-up for treatment at [facility] OPS, as he refused post-discharge [facility] level of care. On the date of discharge, 10/29/16, the patient presented calm and cooperative. Speech was normal in rate, tone and volume. Eye contact was appropriate. Affect was calm and constricted. Mood was "good." He denied passive and active suicidal ideation, plans and intent. He denied passive and active homicidal ideation, plans and intent toward his mother and anyone else. He verbalized understanding of the legal consequences if he were to take action to harm his mother or anyone else. Patient, again, denied ever endorsing homicidal ideation, plans or intent toward his mother or anyone else. Patient stated and also believed he will not harm himself or others. Patient was informed that his mother would be contacted as a duty to warn, this morning, to notify that he would be discharged from [facility] at 4PM today. Patient verbalized understanding of this information, and accepted information appropriately. He denied paranoid ideation , delusions, and auditory and visual hallucinations. He denied acute symptoms of anxiety and depression. He denied feeling hopeless, helpless, and worthless. He denied feeling guilty. Thought process was goal-directed and linear. Thought content was appropriate. Patient did not present as an imminent danger to himself or others. Patient reported feeling safe and ready for discharge. Patient reported tolerating prescribed medications well, and denied untoward medication effects. Per [facility] treatment team decision, the patient was deemed psychiatrically cleared for discharge on 10/29/16 at 4PM. Discharge HBIPS - Tobacco Use Treatment Offered Post DC Medications Offered: NA-No Tob Use >30 days Post DC Tobacco Treatment Plan: NA-No Tobacco use >30days - EtOH/Drug Use D/O Treatment Offered Post DC Medications Offered: Ref Med EtOH/Drug Use D/O Post DC EtOH/SubAbuse TX Plan: Refused Post DC Tx Pgm Metabolic Screening - Screen if on a Neuroleptic Medication - Metabolic screening should include: - Blood Pressure, BMI, Glucose or Hgb A1c, & a - Lipid profile from within the past 365 days. Metabolic Screening ([X]) Not Applicable, patient not on a neuroleptic. OR () Patient on a neuroleptic(s) . Enter below results for Glucose or Hemoglobin A1C, and lipid panel if obtained during the last 365 days. BMI: 25.000 Blood Pressure: 138/65 Laboratory Results (If applicable): n/a Discharge Instructions General Discharge Information Discharge Medications: Discharge Medications- (Dose, route, freq, indication): Diazepam (Valium) 10 Dose: ORAL, DAILY for anxiety Qty: 14 Printed MG TABLET 10 Milligram Take 1 tablet by mouth Refills: 0 every morning. Last Taken:10/29/16 Time:0830am Multivitamin (One Dose: ORAL, DAILY @8 AM for Qty: 14 Printed Daily Multivitamin) 1 Tablet VITAMIN SUPPORT Refills: 0 1 EACH TABLET Take 1 tablet by mouth every morning. Last Taken:10/29/16 Time:0830am Discharge prescriptions were printed, reviewed with the patient, and provided to the patient on discharge, 10/29/16. Multiple Neuroleptics: ([X]) Not Applicable OR Document below three failed attempts at monotherapy, or a plan to taper to monotherapy, or augmentation of Clozapine. () Patient's Diet: Regular. Patient's Activity: No restrictions. DC Disposition: Patient discharge from hospital and reported he had finances to stay at a hotel. Recommendations: The patient was advised to take medications. He was advised to follow-up with after care appointments at [facility]. Patient was advised that his mother was notified of his discharge, 10/29/16 at 4PM. Patient was advised that in the event of an emergency to call 911/go to nearest emergency department. Patient verbalized understanding of all instructions. Referred To: [facility] [address] [place] [id number] ([phone] Intake appointment scheduled on 10/31/2016 at 10:45AM with Juanita Cline LCSW. Medication appointment scheduled on 11/06/2016 at 12:30PM with Dr. Hardy. Copies To: BREN
[2016-10-29 12:15] VITALS: BP 138/65
[2016-10-29 12:33] VITALS: BP 138/65
--- NOTE | 2016-10-29 14:10 | NUR ---
Pt was visible in the milieu today. His goal was to "make important phone calls". Pt was able to get his phone calls made. He was in planning meeting this morning, and was excused from focus group to make those important phone calls. Pt has been interacting more with his peers today and has been cooperative with staff. Pt has plans to be discharged later today. Pt denies thoughts of self harm when asked.
--- NOTE | 2016-10-29 17:05 | NUR ---
Discharged to [facility] with follow up at OP. mood is stable, full range of affect. denied thoughts of self harm when asked. given education on anxiety d/o
== END 2016-10-29 14:15 | DRG 756 ==
LOC: ENRESERVTM → ENRESERVDT → ERH 11:59 → ERHI 10-23 12:03 → CP SOUTH 10-23 12:03
PROVIDERS: Physician Assistant Surgical; ADMIT Psychiatry & Neurology Psychiatry
DX: F41.9 Anxiety disorder, unspecified (principal)
CPT/HCPCS: 80307; 93005; 93010; G0463; G0480